=== PATIENT | female | born 1960 | race African-American/Black ===

== ENCOUNTER 2017-05-28 20:15 | Inpatient (IN) | payer SELFPAY ==
[~2017-05-28] VITALS: Ht 157.5 cm; Wt 91.7 kg
[2017-05-28] MEDS ORDERED: ASPIRIN 81MG TABLET PO ONE (20:45)
[2017-05-28 21:06] LABS: PROTHROMBIN TIME 10.7 sec (9.4-11.6)
[2017-05-28 21:07] LABS: BASOPHILS % 0.4 % (0.0-2.0); CHLORIDE 105 mEq/L (98-107); EOSINOPHILS % 1.3 % (0.0-5.0); HEMOGLOBIN. 12.8 g/dL (12.0-16.0); MEAN CORPUSCULAR HEMOGLOBIN 29.2 pg (28.0-32.0); MEAN CORPUSCULAR VOLUME 88.6 fL (81.0-99.0); MEAN PLATELET VOLUME 7.3 fl (7.4-10.4); MONOCYTES % 6.8 % (2.0-8.0); NEUTROPHILS % 63.5 % (40.0-76.0); PLATELET 294 x1000/uL (130-400); RED CELL DISTRIBUTION WIDTH 14.7 % (11.6-14.6)
[2017-05-28 21:18] LABS: CARBON DIOXIDE 27 mEq/L (21-32); ETHANOL BLOOD < 10 mg/dL; TROPONIN I < 0.02 ng/mL (0.00-0.04)
[2017-05-28 23:30] VITALS: BP 131/77
[2017-05-29] VITALS: BP 131/77
[2017-05-29] MEDS ORDERED: METO-539 PO ×2 (00:14→10:46)
[2017-05-29] MEDS ORDERED: ASPI-986 PO (00:14)
[2017-05-29] MEDS ORDERED: WARFARIN SODIUM 5MG TABLET PO NR (00:15)
[2017-05-29] MEDS ORDERED: ONDANSETRON HCL 4MG/2ML VIAL IV PRN (00:15)
[2017-05-29] MEDS: METOPROLOL TARTRATE 50MG TABLET PO SCH ×3 (01:23→09:35)
[2017-05-29 04:00] VITALS: BP 94/62
[2017-05-29 06:10] LABS: PROTHROMBIN TIME 10.7 sec (9.4-11.6)
[2017-05-29 06:15] LABS: BASOPHILS % 0.6 % (0.0-2.0); EOSINOPHILS % 1.6 % (0.0-5.0); HEMATOCRIT. 37.7 % (36.0-48.0); HEMOGLOBIN. 12.7 g/dL (12.0-16.0); LYMPHOCYTES % 33.2 % (20.0-50.0); MEAN CORPUSCULAR HEMOGLOBIN 29.8 pg (28.0-32.0); MEAN CORPUSCULAR VOLUME 88.7 fL (81.0-99.0); MEAN PLATELET VOLUME 7.7 fl (7.4-10.4); MONOCYTES % 8.9 % (2.0-8.0); NEUTROPHILS % 55.7 % (40.0-76.0); PLATELET 290 x1000/uL (130-400); RED BLOOD CELL COUNT 4.25 mill/uL (4.2-5.4); RED CELL DISTRIBUTION WIDTH 14.7 % (11.6-14.6)
[2017-05-29 06:17] LABS: CARBON DIOXIDE 26 mEq/L (21-32); CHLORIDE 108 mEq/L (98-107)
[2017-05-29 06:25] LABS: HDL CHOLESTEROL 45 mg/dL (40-59); LDL CHOLESTEROL 83 mg/dL (5-100)
[2017-05-29 08:00] VITALS: BP 111/70
[2017-05-29] MEDS ORDERED: ASPIRIN 325MG TABLET PO SCH (09:00)
[2017-05-29] MEDS ORDERED: PNEUMOCOCCAL 23-VAL P-SAC VAC 0.5 ML IM ONE (10:00)
[2017-05-29] MEDS ORDERED: PANTOPRAZOLE 40MG DR TABLET PO SCH (10:45)
[2017-05-29] MEDS ORDERED: KETOROLAC 15MG/ML VIAL IV PRN (10:45)
[2017-05-29] MEDS ORDERED: FAMO-134 PO (10:46)
[2017-05-29] MEDS ORDERED: INFLUENZA VIRUS VACCINE 0.5ML SYR IM ONE (11:00)
[2017-05-29 12:22] VITALS: BP 133/86
[2017-05-29 13:22] VITALS: BP 131/93
== END 2017-05-29 13:30 | disposition home or self-care (01) | DRG 243 ==
LOC: ER 20:15 → EDBEDREQ 21:46 → 5WST 21:58 → EDBEDREQ 22:08 → ENRESERV 22:11
PROVIDERS: ADMIT Internal Medicine; ATTEND Internal Medicine
DX: K21.9 Gastro-esophageal reflux disease without esophagitis (principal); E11.65 Type 2 diabetes mellitus with hyperglycemia; I10 Essential (primary) hypertension; M94.0 Chondrocostal junction syndrome [Tietze]; E66.9 Obesity, unspecified; I48.91 Unspecified atrial fibrillation; I25.2 Old myocardial infarction; Z68.37 Body mass index [BMI] 37.0-37.9, adult
CPT/HCPCS: 36415; 71045; 80048; 80053; 80061; 83036; 83690; 83880; 84443; 84484; 85025; 85610; 90686; 90732; 93005; 99285; G0482